=== PATIENT | female | born 1995 | race Two or more races ===

== ENCOUNTER 2023-12-20 22:03 | Emergency (ER) | payer OTHER ==
[~2023-12-20] VITALS: Ht 167.6 cm; Wt 79.4 kg
[2023-12-21 00:04] LABS: HEMATOCRIT 38.7 % (36.0-45.00); HEMOGLOBIN 13.3 g/dL (12.0-15.00); MEAN CELL VOLUME 77.8 fL (80.00-100.00); MEAN CORPUSCULAR HEMOGLOBIN 26.7 pg (27.00-32.0); MEAN CORPUSCULAR HGB CONC 34.3 g/dl (32.0-36.0); PLATELET COUNT 321 K/uL (150-450); RED BLOOD COUNT 4.98 M/uL (4.00-6.00); RED CELL DISTRIBUTION WIDTH 13.3 % (11.5-14.5)
[2023-12-21 00:21] LABS: CALCIUM 9.5 mg/dL (8.5-10.1); CREATININE SERUM 1.01 mg/dL (0.55-1.02); GFR 66.25; POTASSIUM 4.05 mEq/L (3.5-5.1); TSH 2.51 uIU/mL (0.358-3.74)
[2023-12-21 01:04] LABS: PH,URINE 6.5 (5.0-8.0); URINE APPEARANCE Clear; URINE BILIRRUBIN Negative (NEGATIVE); URINE BLOOD Negative; URINE COLOR Yellow; URINE GLUCOSE Negative (NEGATIVE); URINE LEUKOCYTE Trace; URINE NITRATE Negative; URINE PROTEIN Negative (NEGATIVE); URINE UROBILINOGEN 0.2 E.U./dl
[2023-12-21 01:08] LABS: URINE EPITHELIAL CELLS 2.7 uL (0.0-38.8); URINE RBC 5.6 uL (0.0-20.8); URINE WBC 23.7 uL (0.0-23.2)
== END 2023-12-21 03:56 ==
LOC: ER 22:04
PROVIDERS: Emergency Medicine
DX: R00.2 Palpitations (principal); Z88.8 Allergy status to other drugs, medicaments and biological substances

== ENCOUNTER 2025-04-22 18:21 | Emergency (ER) | payer OTHER ==
[~2025-04-22] VITALS: Ht 165.1 cm; Wt 79.4 kg
[2025-04-22] MEDS ORDERED: SYMBICORT 16010.2 GM (18:38)
[2025-04-22] MEDS ORDERED: MONTELUKAST SODI4 M1 (18:38)
[2025-04-22] MEDS ORDERED: 0.9 % SODIUM CHLORIDE 1,000 ML IV ONE (19:00)
[2025-04-22] MEDS ORDERED: FAMOtidine 10 MG/ML (4ML VIAL) IV ONE (19:00)
[2025-04-22] MEDS ORDERED: KETOROLAC TROMETHAMINE 30 MG VIAL IU ONE (19:00)
[2025-04-22] MEDS ORDERED: ONDANSETRON HCL 2 MG/ML VIAL IV ONE (19:00)
[2025-04-22 19:15] LABS: BASO % 0.2 % (0.1-1.2); EOS # 0.05 (0.04-0.54); EOS % 0.4 % (0.7-7.0); LYMPH # 0.28 (1.18-3.74); LYMPH % 2.3 % (19.3-53.1); MEAN PLATELET VOLUME 9.80 fl (9.4-12.4); MONO # 0.54 (0.24-0.82); MONO % 4.4 % (4.7-12.5); NEUT # 11.31 (1.56-6.13); NEUT % 92.5 % (34.0-71.1); RED CELL DISTRIBUTION WIDTH 13.1 % (11.6-14.4)
[2025-04-22] MEDS ORDERED: ONDANSETRON HCL 2 MG/ML VIAL ONE (19:26)
[2025-04-22] MEDS ORDERED: KETOROLAC TROMETHAMINE 30 MG VIAL ONE (19:26)
[2025-04-22] MEDS ORDERED: FAMOTIDINE/PF 20 MG/2 ML VIAL ONE (19:26)
[2025-04-22 19:41] LABS: ALT/SGPT 14.0 U/L (12-78); AST/SGOT 6.0 U/L (15-37); BILIRUBIN TOTAL 0.53 mg/dL (0.3-1.2); BUN CREA RATIO 12.0 (7.0-25.0); CREATININE SERUM 0.83 mg/dL (0.55-1.02); GFR 82.46; GLOBULINA 4.4 G/DL (2.4-3.5); GLUCOSE FASTING 122.0 mg/dL (65-100); OSMOLALITY SERUM 280.0 MOSM/KG (275-295)
[2025-04-22] MEDS ORDERED: INTESTINEX680 M1 PO (21:27)
[2025-04-22] MEDS ORDERED: PEPCID AC20 MG PO (21:27)
[2025-04-22] MEDS ORDERED: ZOFRAN8 MG PO (21:27)
[2025-04-22] MEDS ORDERED: CIPRO250 MG PO (21:27)
== END 2025-04-22 23:03 | disposition home or self-care (01) ==
LOC: ER 18:22
PROVIDERS: Behavior Technician
DX: K52.89 Other specified noninfective gastroenteritis and colitis (principal); Z91.013 Allergy to seafood; Z91.041 Radiographic dye allergy status